=== PATIENT | female | born 1960 | race Caucasian/White ===

== ENCOUNTER 2018-01-10 13:41 | Emergency (ER) | payer BC ==
[2018-01-10] MEDS ORDERED: ALPRAZolam 0.5 MG TAB PO STA (14:28)
--- NOTE | 2018-01-10 14:40 | ED ---
General Adult HPI - General Chief complaint: Recheck/Abnormal Lab/Rx Stated complaint: high b/p Time Seen by Provider: 01/10/18 14:28 Source: patient, family, EMS, RN notes reviewed, old records reviewed Mode of arrival: ambulatory Limitations: no limitations - History of Present Illness Initial comments: Chief complaint history of present illness this is a 57-year-old female who presents emergency room because of elevated blood pressure. The patient had checked at home and at a local urgent care and by a friend. Needed found the systolic to be approximately 182/208 and diastolic up to approximately 100. The patient takes Vasotec this morning. No other medications no other problems no other symptoms. - Related Data Allergies Allergy/AdvReac Type Severity Reaction Status Date / Time No Known Allergies Allergy Verified 01/10/18 14:00 Review of Systems ROS Statement: Those systems with pertinent positive or pertinent negative responses have been documented in the HPI. Review of systems. Patient has no complaints no visual acuity changes no headache no tingling no chest pain or shortness of breath no GI/ problems no neuro deficits. All systems were reviewed. Recently the patient was treated by her family physician with a Z-Garcia which ended today she was complaining of some congestion and cough. She understands that the Z-Garcia continues to work for approximately another 5 or 6 days. While in emergency room she did not cough or have any congestion. Past medical problems significant for hypertension, hyperlipidemia thyroid disorder. She also had [id number] diabetes mellitus and coronary artery disease. Surgeries include 1 stent placed and a thyroidectomy noncancerous. She takes exaggerative this thyroid supplement. Family history sister had leukemia. Patient denies ALLERGIES she quit smoking 6 years ago drinks alcohol rarely socially. ROS Other: All systems not noted in ROS Statement are negative. Past Medical History Past Medical History: Coronary Artery Disease (CAD), Diabetes Mellitus, Hyperlipidemia, Hypertension, Thyroid Disorder History of Any Multi-Drug Resistant Organisms: None Reported Past Surgical History: Heart Catheterization With Stent Additional Past Surgical History / Comment(s): thyroidectomy Past Psychological History: No Psychological Hx Reported Smoking Status: Former smoker Past Alcohol Use History: Occasional Past Drug Use History: None Reported General Exam - General Exam Comments Initial Comments: General: The patient is awake and alert, in no distress, and does not appear acutely ill. Here because of elevated blood pressure measurements at home and at an urgent care. Patient offers no other complaints. Vital signs shows temperature 98.4 pulse 85 respiratory rate 16 pulse ox 96% room air blood pressure 187/91. Patient's morbidly obese weighing approximately 290 pounds. Eye: Pupils are equal, round and reactive to light, extra-ocular movements are intact ; there is normal conjunctiva bilaterally. No signs of icterus. Ears, nose, mouth and throat: There are moist mucous membranes and no oral lesions. Neck: The neck is supple, there is no tenderness patient had thyroid removed. Cardiovascular: There is a regular rate and rhythm. No murmur, rub or gallop is appreciated. Respiratory: Lungs are clear to auscultation, respirations are non-labored, breath sounds are equal. No wheezes, stridor, rales, or rhonchi. Gastrointestinal: Soft, non-distended, non-tender abdomen without masses or organomegaly noted. There is no rebound or guarding present. No CVA tenderness. Bowel sounds are unremarkable. Back: There is no tenderness to palpation in the midline. There is no obvious deformity. No rashes noted. Musculoskeletal: Normal ROM, no tenderness, mild chronic lower extremity edema.. There is no calf tenderness or swelling. Sensation intact. Pulses equal bilaterally 2+. Neurological: CN II-XII intact, There are no obvious motor or sensory deficits. Coordination appears grossly intact. Speech is normal. No focal or lateralizing findings Skin: Skin is warm and dry and no rashes or lesions are noted. Psychiatric: Cooperative, denies depression Limitations: no limitations Course Vital Signs 01/10/18 13:56 Temperature 98.4 F Pulse Rate 85 Respiratory 16 Rate Blood Pressure 187/91 O2 Sat by Pulse 96 Oximetry Medical Decision Making - Medical Decision Making His blood pressure has been elevated home. In emergency room she was given Catapres 0.2. At this time the patient's blood pressures proximal 170/90. She' s been advised to go home rest relax and take an extra Vasotec within the next hour nap 2 hours. Continue to recheck her blood pressure and motor formerly [facility] family physician or return emergency room as needed. No symptoms or complaints or neuro deficits noted. Disposition Clinical Impression: Hypertension, essential Disposition: HOME SELF-CARE Condition: Fair Instructions: Hypertension (ED) Additional Instructions: Take an extra Vasotec this evening. Blood pressure remains elevated. Call follow-up with family physician or return emergency room as needed Is patient prescribed a controlled substance at d/c from ED?: No Referrals: Bill North MD [Primary Care Provider] - 1-2 days
[2018-01-10] MEDS ORDERED: cloNIDine HCL 0.2 MG TAB PO STA (15:01)
[2018-01-10 16:56] VITALS: BP 162/89; PULSE 81; RESP 18; TEMP 97.8
== END 2018-01-10 17:16 | disposition home or self-care (01) ==
LOC: EC 13:41
DX: I10 Essential (primary) hypertension (principal); I25.10 Atherosclerotic heart disease of native coronary artery without angina pectoris; E66.01 Morbid (severe) obesity due to excess calories; Z68.42 Body mass index [BMI] 45.0-49.9, adult; Z95.5 Presence of coronary angioplasty implant and graft; Z87.891 Personal history of nicotine dependence; Z53.8 Procedure and treatment not carried out for other reasons
CPT/HCPCS: 99283

== ENCOUNTER 2018-11-09 16:03 | Observation (INO) | payer BC ==
[2018-11-09] MEDS ORDERED: SODIUM CHLORIDE 0.9% 1,000 ML IV STA (16:38)
--- NOTE | 2018-11-09 16:40 | ED ---
Chest Pain HPI - General Chief Complaint: Chest Pain Stated Complaint: chest pain Time Seen by Provider: 11/09/18 16:22 Source: patient, RN notes reviewed Mode of arrival: ambulatory Limitations: no limitations - History of Present Illness Initial Comments: This is a 58-year-old female with a history of a cardiac stent in the past also history type 2 diabetes hypertension and a former smoker who states she had the onset around 9 AM this morning of intermittent episodes of mid lower sternal chest discomfort and feels like heartburn. She states she is pain-free at this time and has had several episodes of pain getting up as high as 6-7/10 in severity. She did have some associated nausea with it when he got severe. Currently she is asymptomatic. She voices no other complaints no shortness of breath cough phlegm production trauma recent change in medications. MD Complaint: chest pain - Related Data Home Medications Medication Instructions Recorded Confirmed Acetaminophen Tab [Tylenol Tab] 500 mg PO DAILY 11/09/18 11/09/18 Aspirin 325 mg PO DAILY 11/09/18 11/09/18 Atorvastatin [Lipitor] 40 mg PO HS 11/09/18 11/09/18 Cholecalciferol [Vitamin D3] 1,000 unit PO DAILY 11/09/18 11/09/18 Enalapril [Vasotec] 10 mg PO BID 11/09/18 11/09/18 Famotidine [Pepcid] 20 mg PO BID 11/09/18 11/09/18 Levothyroxine Sodium [Synthroid] 150 mcg PO DAILY 11/09/18 11/09/18 Magnesium Oxide [Mag-Ox] 250 mg PO HS 11/09/18 11/09/18 Metoprolol Succinate (ER) [Toprol 25 mg PO DAILY 11/09/18 11/09/18 Xl] metFORMIN HCL ER [Glucophage Xr] 500 mg PO AC-BRKFST 11/09/18 11/09/18 Allergies Allergy/AdvReac Type Severity Reaction Status Date / Time No Known Allergies Allergy Verified 11/09/18 17:35 Review of Systems ROS Statement: Those systems with pertinent positive or pertinent negative responses have been documented in the HPI. ROS Other: All systems not noted in ROS Statement are negative. EKG Findings - EKG Results: EKG: interpreted by ERMD, sinus rhythm, normal axis, normal QRS, normal ST/T, no acute changes (EKG shows a normal sinus rhythm a 69 appear of 01 44 QRS duration 86 QT since QTC 404/[address]-T wave changes seen at this time.) Past Medical History Past Medical History: Coronary Artery Disease (CAD), Diabetes Mellitus, Hyperlipidemia, Hypertension, Thyroid Disorder History of Any Multi-Drug Resistant Organisms: None Reported Past Surgical History: Heart Catheterization With Stent Additional Past Surgical History / Comment(s): thyroidectomy Past Psychological History: No Psychological Hx Reported Smoking Status: Former smoker Past Alcohol Use History: Occasional Past Drug Use History: None Reported General Exam - General Exam Comments Initial Comments: This is a well-developed well-nourished awake alert oriented 3 female Limitations: no limitations General appearance: alert, in no apparent distress Head exam: Present: atraumatic, normocephalic, normal inspection Eye exam: Present: normal appearance, PERRL, EOMI. Absent: scleral icterus, conjunctival injection, periorbital swelling ENT exam: Present: normal exam, mucous membranes moist Neck exam: Present: normal inspection, full ROM, other (No stridor JVD or bruits ). Absent: tenderness, meningismus, lymphadenopathy Respiratory exam: Present: normal lung sounds bilaterally. Absent: respiratory distress, wheezes, rales, rhonchi, stridor Cardiovascular Exam: Present: regular rate, normal rhythm, normal heart sounds. Absent: systolic murmur, diastolic murmur, rubs, gallop, clicks GI/Abdominal exam: Present: soft, normal bowel sounds. Absent: distended, tenderness, guarding, rebound, rigid, bruit, pulsatile mass Extremities exam: Present: normal inspection, full ROM, normal capillary refill. Absent: tenderness, pedal edema, joint swelling, calf tenderness Back exam: Present: normal inspection Neurological exam: Present: alert, oriented X3, CN II-XII intact Psychiatric exam: Present: normal affect, normal mood Skin exam: Present: warm, dry, intact, normal color. Absent: rash Course Vital Signs 11/09/18 16:06 Temperature 98.1 F Pulse Rate 72 Respiratory 18 Rate Blood Pressure 127/73 O2 Sat by Pulse 98 Oximetry - Reevaluation(s) Reevaluation #1: 11/09/18 16:44 school lunch monitor: Patient had a monitoring engineer ordered due to history of recurrent chest pain today. The purposes to rule out dysrhythmia. Patient straight a normal sinus rhythm with a rate approximately [address]-T wave changes seen at this time. Reevaluation #2: 11/09/18 18:51 Reevaluation patient revealed no change in her status. Reevaluation #3: 11/09/18 18:52 Patient will require Nitropaste as well as IV heparin. Chest Pain MDM - MDM Imaging shows no acute findings. Patient is resting comfortably still having intermittent episodes of discomfort. She will be admitted I did discuss the case with Dr. Rossi. Dr. Pierson will be consulted Critical Care Time Critical Care Time: Yes Critical Care Time: 31 minutes of critical care time the patient time includes history physical labs x-rays reevaluation patient discussed with the patient and the findings and admission orders as well as documentation the above and discussed with Dr. Rossi. Disposition Clinical Impression: Acute coronary syndrome, Unstable angina pectoris Disposition: ADMITTED IP TO THIS [facility] Condition: Stable Referrals: Bill North MD [Primary Care Provider] - 1-2 days
[2018-11-09 17:01] LABS: Basophils % (A) 0 %; Eosinophils # (A) 0.5 k/uL (0-0.7); Eosinophils % (A) 7 %; HCT 41.2 % (34.0-46.0); Lymphocytes # (A) 1.5 k/uL (1.0-4.8); Lymphocytes % (A) 22 %; MCH 29.6 pg (25.0-35.0); MCHC 31.6 g/dL (31.0-37.0); MCV 93.7 fL (80.0-100.0); Mean Platelet Volume 7.3; Monocytes # (A) 0.3 k/uL (0-1.0); Monocytes % (A) 4 %; Neutrophils # (A) 4.4 k/uL (1.3-7.7); Neutrophils % (A) 65 %; Platelet Count 255 k/uL (150-450); RDW 14.9 % (11.5-15.5); WBC 6.8 k/uL (3.8-10.6)
[2018-11-09 17:09] LABS: ALT 41 U/L (9-52); AST 45 U/L (14-36); Albumin 4.5 g/dL (3.5-5.0); Alkaline Phosphatase 69 U/L (38-126); Amylase 73 U/L (30-110); Anion Gap 10 mmol/L; Blood Urea Nitrogen 19 mg/dL (7-17); Calcium 9.2 mg/dL (8.4-10.2); Carbon Dioxide 24 mmol/L (22-30); Chloride 108 mmol/L (98-107); Glucose 89 mg/dL (74-99); Lipase 90 U/L (23-300); Magnesium 2.2 mg/dL (1.6-2.3); Sodium 142 mmol/L (137-145); Total Bilirubin 1.3 mg/dL (0.2-1.3); Total Protein 7.6 g/dL (6.3-8.2)
[2018-11-09 17:11] LABS: INR 0.9 (<1.2); Partial Thromboplastin Time 23.5 sec (22.0-30.0); Prothrombin Time 10.1 sec (9.0-12.0)
--- NOTE | 2018-11-09 17:15 | XR ---
EXAMINATION TYPE: XR chest 2V DATE OF EXAM: 11/09/2018 COMPARISON: Prior chest x-ray August 20, 2011. HISTORY: Chest pain. TECHNIQUE: Frontal and lateral views of the chest are obtained. FINDINGS: There is no focal air space opacity, pleural effusion, or pneumothorax seen. The cardiac silhouette size is upper limits of normal. Overlying EKG leads are redemonstrated. The osseous stru ctures are intact. IMPRESSION: No acute pulmonary process. No significant change from prior.
[2018-11-09 17:20] LABS: Potassium 4.9 mmol/L (3.5-5.1)
[2018-11-09] MEDS ORDERED: HEPARIN SODIUM,PORCINE 5,000 UNIT/ML 1 ML VIAL IV ONE (18:54)
[2018-11-09] MEDS ORDERED: NITROGLYCERIN SL TABS 0.4 MG TAB SUBLINGUAL PRN (18:54)
[2018-11-09] MEDS ORDERED: SODIUM CHLORIDE 0.9% 1,000 ML IV SCH (19:00)
[2018-11-09] MEDS ORDERED: HEPARIN SOD,PORK IN 0.45% NACL 25,000 UNIT in 0.45% NACL 1 250ML.BAG IV SCH (19:00)
[2018-11-09] MEDS: NITROGLYCERIN OINT 1 INCH/GM PACKET TOPICAL SCH (19:47)
[2018-11-09] MEDS ORDERED: MAGNESIUM OXIDE 400 MG TAB PO SCH (21:00)
[2018-11-09] MEDS ORDERED: ATORVASTATIN 40 MG TAB PO SCH (21:00)
[2018-11-09] MEDS: FAMOTIDINE 20 MG TAB PO SCH (21:54)
[2018-11-09 22:11] VITALS: BMI 45.8
[2018-11-09] MEDS: LISINOPRIL 20 MG TAB PO SCH (22:14)
[2018-11-09 22:17] LABS: Glucose,Whole Blood 129 mg/dL (75-99)
[2018-11-09] MEDS: INSULIN ASPART (NovoLOG) 100 UNIT/ML VIAL SQ SCH (22:29)
[2018-11-10 00:22] VITALS: RESP 18
[2018-11-10] MEDS: NITROGLYCERIN OINT 1 INCH/GM PACKET TOPICAL SCH (05:56)
[2018-11-10 06:09] LABS: Cholesterol 93 mg/dL (<200); HDL Cholesterol 41 mg/dL (40-60); LDL Cholesterol,Calculated 34 mg/dL (0-99); Triglycerides 91 mg/dL (<150)
[2018-11-10] MEDS ORDERED: LEVOTHYROXINE 75 MCG TAB PO SCH (06:30)
[2018-11-10 06:36] LABS: Glucose,Whole Blood 107 mg/dL (75-99)
[2018-11-10] MEDS ORDERED: DOBUTamine DRIP for NUC MED 500 MG in DEXTROSE/WATER 1 250ML.BAG IV ONE (07:15)
[2018-11-10 07:22] VITALS: PULSE 78
[2018-11-10] MEDS ORDERED: metFORMIN 500 MG TAB PO SCH (07:30)
--- NOTE | 2018-11-10 07:47 | CONS ---
CONSULTATION Mrs Martinez is a 58-year-old female who presented with symptoms of chest discomfort. The patient has a known history of coronary artery disease, underwent percutaneous revascularization in 2010. She has been doing well and has increased her level of activity, lost weight recently. Yesterday at rest, she had an episode of chest burning that persisted. She took nitroglycerin without improvement. She took antacids without improvement either, came into the emergency room for further evaluation. She denies any associated dyspnea. She denies any dizziness or palpitation. No PND, orthopnea, or peripheral edema. She has been followed by Dr. Pierson on a regular basis. She has been stable since her percutaneous revascularization and she feels that the symptoms are different than her presenting symptoms in 2011. Her medication coronary risk factors are positive for hypertension, hyperlipidemia, and diabetes. She is a nonsmoker since 2010. MEDICATIONS: Include metformin 500 mg daily, metoprolol succinate 25 mg daily, magnesium oxide levothyroxine 15 mg daily, Pepcid, enalapril 10 mg twice a day, Lipitor 40 mg daily, aspirin once a day, vitamin D. REVIEW OF SYSTEMS: RESPIRATORY SYSTEM: She has no documented history of asthma, emphysema or bronchitis. GI SYSTEM: No recent GI bleed. No peptic ulcer disease. SYSTEM: No dysuria or hematuria. NERVOUS SYSTEM: No stroke or seizure. PHYSICAL EXAMINATION: She is a 58-year-old female, alert, oriented, in no apparent distress. Blood pressure 119/70 with a heart rate in the 70s. HEAD: Normocephalic. EYES: Sclerae nonicteric. NECK: Good upstroke, no bruit, no jugular venous distention. LUNGS: Clear to auscultation. HEART: Regular rate and rhythm, S1, S2. No S3. No S4. No murmur or rub. ABDOMEN: Soft, obese, nontender. Positive bowel sounds, no organomegaly. EXTREMITIES: No edema, intact pulses. LAB DATA: Revealed BUN and creatinine 19 and 0.7, hemoglobin of 13. Troponin less than 0.012 for 3 samples. Cholesterol 93, LDL of 34. EKG revealed a sinus mechanism normal axis and intervals. Normal electrocardiogram. Chest x-ray shows no acute changes. IMPRESSION: 1. Chest discomfort, atypical for ischemic heart disease in a patient with known history of coronary artery disease. 2. Status post stenting in 2010. 3. History of hypertension. 4. Hyperlipidemia. 5. Diabetes mellitus. RECOMMENDATION: I will stop the IV heparin. I will proceed with a stress dobutamine echocardiogram and depending on the results of testing, further recommendation will be made. Thank you for this consult. Will follow with you. ERIN / TRESSA: [id number] /
[2018-11-10] MEDS: INSULIN ASPART (NovoLOG) 100 UNIT/ML VIAL SQ SCH ×2 (08:12→12:28)
[2018-11-10] MEDS ORDERED: ACETAMINOPHEN TAB 500 MG TAB PO SCH (09:00)
[2018-11-10] MEDS ORDERED: LISINOPRIL 20 MG TAB PO SCH (09:00)
[2018-11-10] MEDS ORDERED: ASPIRIN 325 MG TAB PO SCH (09:00)
[2018-11-10] MEDS ORDERED: CHOLECALCIFEROL 1,000 UNIT TAB PO SCH (09:00)
[2018-11-10] MEDS ORDERED: METOPROLOL SUCCINATE (ER) 25 MG TAB.ER.24H PO SCH (09:00)
[2018-11-10] MEDS: LISINOPRIL 20 MG TAB PO SCH (10:56)
[2018-11-10] MEDS: FAMOTIDINE 20 MG TAB PO SCH (10:57)
--- NOTE | 2018-11-10 11:18 | ECHOF ---
Referral Reason:cp MEASUREMENTS -------- HEIGHT: 162.6 cm WEIGHT: 121.1 kg BP: IVSd: 1.4 cm (0.6 - 1.1) LVIDd: 3.9 cm (3.9 - 5.3) LVPWd: 1.5 cm (0.6 - 1.1) IVSs: 1.5 cm LVIDs: 2.3 cm LVPWs: 1.7 cm Ao Diam: 3.0 cm (2.0 - 3.7) AV Cusp: 1.8 cm (1.5 - 2.6) LA Diam: 3.3 cm (2.7 - 3.8) MV EXCURSION: 10.412 mm (> 18.000) MV EF SLOPE: 66 mm/s (70 - 150) EPSS: 0.6 cm MV E Jesus: 0.63 m/s MV DecT: 215 ms MV A Jesus: 0.84 m/s MV E/A Ratio: 0.75 RAP: 5.00 mmHg RVSP: 14.31 mmHg FINDINGS -------- Sinus rhythm. This was a technically difficult study with suboptimal views. The left ventricular size is normal. There is moderate concentric left ventricular hypertrophy. O verall left ventricular systolic function is normal with, an EF between 55 - 60 %. The right ventricle is normal in size. The left atrial size is normal. The right atrium is normal in size. Lumason used The aortic valve is trileaflet and appears structurally normal. The mitral valve is normal. There is trace mitral regurgitation. Trace tricuspid regurgitation present. There is no evidence of pulmonary hypertension. The right ventricular systolic pressure, as measured by Doppler, is 14.31mmHg. The pulmonic valve was not well visualized. There is no pulmonic regurgitation present. The aortic root size is normal. IVC Not well visulized. There is no pericardial effusion. CONCLUSIONS -------- 1. Sinus rhythm. 2. This was a technically difficult study with suboptimal views. 3. The left ventricular size is normal. 4. There is moderate concentric left ventricular hypertrophy. 5. Overall left ventricular systolic function is normal with, an EF between 55 - 60 %. 6. The left atrial size is normal. 7. Lumason used 8. The aortic valve is trileaflet and appears structurally normal. 9. There is trace mitral regurgitation. 10. Trace tricuspid regurgitation present. 11. There is no evidence of pulmonary hypertension. 12. The pulmonic valve was not well visualized. 13. The aortic root size is normal. 14. IVC Not well visulized. 15. There is no pericardial effusion. PERSONNEL RESEARCH PSYCHOLOGIST: Leigha Escamilla RDCS
[2018-11-10 11:55] LABS: Glucose,Whole Blood 168 mg/dL (75-99)
--- NOTE | 2018-11-10 12:03 | P.HPIM ---
History of Present Illness H&P Date: 11/10/18 Chief Complaint: Burning chest pain HISTORY AND PHYSICAL AND DISCHARGE SUMMARY: This is a 58-year-old female patient of Dr. North and Dr. Pierson with past medical history for coronary artery disease status post PTCA in 2010, hypertension, hyperlipidemia, diabetes mellitus type 2, hypothyroidism, remote history of tobacco use. Patient also relates that in September she started watching her food intake and walking 2 miles per day and has lost 17 pounds. She has not had any chest pain, shortness of breath with activity. Patient states that she had a burning sensation in her chest and she initially thought that it was heartburn. It lasted all day yesterday and into the night and is still there this morning but is not as intense. She took anti-antacids without any improvement and then came into [facility] emergency center for evaluation. She has been afebrile, blood pressure 156/88, heart rate in the 70s, pulse ox 97% on room air. CBC normal, troponin negative 3 draws. Triglycerides 91, cholesterol 93, LDL 34, HDL 41. Amylase and lipase were normal. AST 45. Patient was started on heparin drip and placed in the observation floor and consult with Dr. Cha. Echocardiogram reveals EF 55-60 % with moderate concentric left hypertrophy, trace mitral regurgitation, trace tricuspid regurgitation, no pulmonary hypertension. Dobutamine stress test was normal and patient will be discharged home today in stable condition. No medication changes were made. Review of Systems All systems: negative Constitutional: Reports weight loss, Denies chills, Denies fatigue, Denies fever , Denies malaise, Denies poor appetite, Denies weakness Eyes: denies blurred vision, denies pain Ears, nose, mouth and throat: Denies dysphagia, Denies headache, Denies sore throat, Denies vertigo Cardiovascular: Reports chest pain, Denies dyspnea on exertion, Denies edema, Denies leg edema, Denies lightheadedness, Denies shortness of breath Respiratory: Denies cough, Denies cough with sputum, Denies dyspnea, Denies excessive sputum, Denies hemoptysis, Denies home oxygen, Denies wheezing Gastrointestinal: Reports heartburn, Denies abdominal pain, Denies diarrhea, Denies loss of appetite, Denies nausea, Denies vomiting Genitourinary: Denies dysuria, Denies hematuria Musculoskeletal: Denies frequent falls, Denies gait dysfunction, Denies myalgias Integumentary: Denies pruritus, Denies rash, Denies wounds Neurological: Denies aphasia, Denies change in mentation, Denies change in speech, Denies gait dysfunction, Denies head injury, Denies headaches, Denies numbness, Denies seizures, Denies weakness Psychiatric: Denies anxiety, Denies depression Endocrine: Denies fatigue, Denies weight change Past Medical History Past Medical History: Coronary Artery Disease (CAD), Diabetes Mellitus, Hyperlipidemia, Hypertension, Thyroid Disorder History of Any Multi-Drug Resistant Organisms: None Reported Past Surgical History: Heart Catheterization With Stent Additional Past Surgical History / Comment(s): thyroidectomy Past Anesthesia/Blood Transfusion Reactions: No Reported Reaction Date of Last Stent Placement:: 08/2011 Past Psychological History: No Psychological Hx Reported Smoking Status: Former smoker Past Alcohol Use History: Occasional Additional Past Alcohol Use History / Comment(s): Patient was a smoker of 2-1/2 packs per day for 32 years. She quit in 2010. She drinks occasional alcohol. 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 She lives at home with her . Past Drug Use History: None Reported - Past Family History Father Family Medical History: Myocardial Infarction ([place]) Additional Family Medical History / Comment(s): Father at age 70 from a myocardial infarction. Mother Family Medical History: CVA/TIA Additional Family Medical History / Comment(s): Mother at age 86 with history of CVA and COPD. Sister(s) Family Medical History: Hypertension Additional Family Medical History / Comment(s): Patient has 2 sisters and one has history of CLL, one sister has no major medical problems. Patient does not have any brothers. Patient has 2 daughters with no major medical problems. Medications and Allergies Home Medications Medication Instructions Recorded Confirmed Type Acetaminophen Tab [Tylenol Tab] 500 mg PO DAILY 11/09/18 11/09/18 History Aspirin 325 mg PO DAILY 11/09/18 11/09/18 History Atorvastatin [Lipitor] 40 mg PO HS 11/09/18 11/09/18 History Cholecalciferol [Vitamin D3] 1,000 unit PO DAILY 11/09/18 11/09/18 History Enalapril [Vasotec] 10 mg PO BID 11/09/18 11/09/18 History Famotidine [Pepcid] 20 mg PO BID 11/09/18 11/09/18 History Levothyroxine Sodium [Synthroid] 150 mcg PO DAILY 11/09/18 11/09/18 History Magnesium Oxide [Mag-Ox] 250 mg PO HS 11/09/18 11/09/18 History Metoprolol Succinate (ER) [Toprol 25 mg PO DAILY 11/09/18 11/09/18 History Xl] metFORMIN HCL ER [Glucophage Xr] 500 mg PO AC-BRKFST 11/09/18 11/09/18 History Allergies Allergy/AdvReac Type Severity Reaction Status Date / Time No Known Allergies Allergy Verified 11/09/18 17:35 Physical Exam Vitals: Vital Signs Temp Pulse Pulse Resp BP BP Pulse Ox 11/10/18 08:00 78 18 11/10/18 07:00 97.9 F 78 18 137/88 97 11/10/18 03:29 18 11/10/18 03:21 98.3 F 73 18 119/71 98 11/10/18 00:00 98.6 F 73 18 141/74 98 11/09/18 20:00 98.3 F 69 16 163/92 97 11/09/18 19:21 70 18 156/88 97 11/09/18 16:06 98.1 F 72 18 127/73 98 Intake and Output 11/09/18 11/10/18 11/10/18 22:59 06:59 14:59 Intake Total 67.333 Balance 67.333 Intake: Intake, IV Titration 67.333 Amount Heparin Sod,Pork in 0.45% 67.333 NaCl 25,000 unit In 0.45 % NaCl 1 250ml.bag @ 8.26 UNITS/KG/HR 10 mls/hr IV .Q24H [facility] Rx#:[id number] Other: Voiding Method Toilet Toilet Toilet # Voids 2 2 Weight 121.109 kg Gen: This is a 58-year-old morbidly obese female. She is resting in bed and appears to be comfortable and in no acute distress. Multiple family members are at bedside. HEENT: Head is atraumatic, normocephalic. Pupils equal, round. Sclerae is anicteric. Conjunctiva pink. Mucous members of the mouth are moist. No thrush noted. NECK: Supple. No JVD. No lymphadenopathy. No thyromegaly. LUNGS: Clear to auscultation. No wheezes or rhonchi. No intercostal retractions. HEART: Regular rate and rhythm. No murmur. ABDOMEN: Soft. Bowel sounds are present. No masses. No tenderness. EXTREMITIES: No pedal edema. No calf tenderness. Dorsalis pedis +2 bilaterally. NEUROLOGICAL: Patient is awake, alert and oriented x3. Cranial nerves 2 through 12 are grossly intact. Results CBC & Chem 7: 11/09/18 16:47 11/09/18 16:47 Labs: Abnormal Lab Results - Last 24 Hours (Table) 11/09/18 11/09/18 11/10/18 Range/Units 16:47 22:15 01:11 APTT 31.8 H (22.0-30.0) sec Chloride 108 H (98-107) mmol/L BUN 19 H (7-17) mg/dL POC Glucose (mg/dL) 129 H (75-99) mg/dL AST 45 H (14-36) U/L 11/10/18 11/10/18 Range/Units 06:34 07:39 APTT 40.0 H (22.0-30.0) sec Chloride (98-107) mmol/L BUN (7-17) mg/dL POC Glucose (mg/dL) 107 H (75-99) mg/dL AST (14-36) U/L Thrombosis Risk Factor Assmnt - Choose All That Apply Each Factor Represents 1 point: Age 41-60 years, Obesity (BMI >25) Thrombosis Risk Factor Assessment Total Risk Factor Score: 2 Thrombosis Risk Factor Assessment Level: Low Risk Assessment and Plan Plan: 1. Chest pain most likely related to gastroesophageal reflux disease. 2. Hypertension. Continue lisinopril 40 mg daily, Toprol-XL 25 mg daily. 3. Hyperlipidemia. Continue atorvastatin. 4. History of coronary artery disease status post stenting. 5. Hypothyroidism. Continue levothyroxine. 6. Diabetes mellitus type 2. 7. Remote history of tobacco use and dependence. 8. Possible obstructive sleep apnea. Recommend outpatient sleep study. Patient placed on the observation unit. Discharge plan: Home Impression and plan of care have been directed as dictated by the signing physician. Britni Convery nurse practitioner acting as scribe for signing physician.
[2018-11-10 12:04] VITALS: BP 144/78; TEMP 97.4
--- NOTE | 2018-11-10 14:11 | ECHOS ---
STRESS ECHOCARDIOGRAM INDICATIONS: Chest pain. BASELINE HEART RATE: 74 BASELINE BLOOD PRESSURE: 130/93 MAXIMUM HEART RATE: 143 MAXIMUM BLOOD PRESSURE: 183/74 85% MPHR: 139 100% MPHR: 163 MAXIMUM STAGE REACHED: 2 TOTAL EXERCISE TIME: 8:30 CLINICAL INFORMATION: Baseline rhythm is a sinus mechanism, rate of 74, normal axis, intervals normal cardiogram. Baseline blood pressure 130/93 mmHg. Patient received infusion of dobutamine per protocol. Peak rate 143 beats per minute which is equal to 87% maximum predicted heart rate. Peak blood pressure 183/74 mmHg. Electrocardiograph monitoring revealed occasional PVCs. There was no evidence of diagnostic ischemic ST deviation. FINDINGS: Baseline echocardiogram revealed normal wall thickening and motion. At peak exercise, there was normal wall motion augmentation with no hypokinesis or dyskinesis. CONCLUSION: 1. Normal electrocardiograph response to dobutamine infusion with occasional premature ventricular contractions. 2. Normal stress echocardiogram with no evidence of stress-induced ischemia. MMODL / IJN: [id number] /
== END 2018-11-10 14:25 | disposition home or self-care (01) ==
LOC: EC 16:03 → 1SOBS 18:58
PROVIDERS: ADMIT Internal Medicine; ATTEND Internal Medicine
DX: R07.89 Other chest pain (principal); R11.0 Nausea; I10 Essential (primary) hypertension; E78.5 Hyperlipidemia, unspecified; I25.10 Atherosclerotic heart disease of native coronary artery without angina pectoris; K21.9 Gastro-esophageal reflux disease without esophagitis; E89.0 Postprocedural hypothyroidism; E11.9 Type 2 diabetes mellitus without complications; E66.01 Morbid (severe) obesity due to excess calories; Z68.42 Body mass index [BMI] 45.0-49.9, adult; Z79.82 Long term (current) use of aspirin; Z79.890 Hormone replacement therapy; Z79.84 Long term (current) use of oral hypoglycemic drugs; Z79.899 Other long term (current) drug therapy; Z87.891 Personal history of nicotine dependence; Z95.5 Presence of coronary angioplasty implant and graft; Z82.5 Family history of asthma and other chronic lower respiratory diseases; Z82.3 Family history of stroke; Z82.49 Family history of ischemic heart disease and other diseases of the circulatory system; Z80.6 Family history of leukemia
CPT/HCPCS: 96366 ×2; 96376; 96365; 99291; 36415; 93005; 93306; 93351; 83880; 80061; 80053; 82150; 83690; 83735; 84484 ×2; 85025; 85610; 85730 ×2; 71046; G0378 ×2; J1250; J1644 ×2; Q9950

== ENCOUNTER → 2024-09-27 | Outpatient (CLI) | payer BC | END | disposition home or self-care (01) | LOC: LABWHC1 10:21 | PROVIDERS: ATTEND Family Medicine | DX: R73.03 Prediabetes (principal) | CPT/HCPCS: 36415; 83036 ==